=== PATIENT | female | born 1950 | race Caucasian/White ===

== ENCOUNTER → 2016-10-13 | Outpatient (CLI) | payer MEDICARE, MEDICAID ==
[~2016-10-13] MED LIST: LISI5TAB7 PO; SIMV10TA3 PO
[2016-10-13 10:56] LABS: ASPARTATE AMINO TRANSFERASE 16 U/L (15-37); BLOOD UREA NITROGEN 10 mg/dL (7-18)
== END | disposition home or self-care (01) ==
LOC: STAR 10-09 12:23
PROVIDERS: ATTEND Neurological Surgery
DX: Z01.818 Encounter for other preprocedural examination (principal); I10 Essential (primary) hypertension; M47.12 Other spondylosis with myelopathy, cervical region; R79.1 Abnormal coagulation profile
CPT/HCPCS: 36415; 71020; 80053; 81003; 85025; 85610; 85730; 93005

== ENCOUNTER 2016-10-20 05:38 | Inpatient (IN) | payer MEDICARE, MEDICAID ==
[~2016-10-20] VITALS: Ht 167.6 cm; Wt 83.0 kg
[2016-10-20] MEDS ORDERED: LACTATED RINGERS 1,000 ML IV SCH (06:24)
[2016-10-20] MEDS ORDERED: LIDOCAINE 1%, 2ML SQ PRN (06:30)
[2016-10-20] MEDS ORDERED: VANCOMYCIN 1,000 MG ONE (06:54)
[2016-10-20] MEDS ORDERED: BUPIVACAINE/PF-EPI 0.5% 1:200K ONE (06:54)
[2016-10-20] MEDS ORDERED: THROMBIN 5,000 UNIT VIAL TP ONE (06:55)
[2016-10-20] MEDS ORDERED: BACITRACIN 50,000 UNIT ONE (06:55)
[2016-10-20] MEDS ORDERED: FENTANYL PF 250 MCG/5ML ONE (07:22)
[2016-10-20] MEDS ORDERED: KETAMINE 10 MG/ML, 20ML ONE (07:22)
[2016-10-20] MEDS ORDERED: PROPOFOL 10 MG/ML, 20ML ONE (07:35)
[2016-10-20] MEDS ORDERED: DEXAMETHASONE 4 MG/ML, 5ML ONE (07:35)
[2016-10-20] MEDS ORDERED: PROPOFOL 10 MG/ML, 50ML ONE (07:35)
[2016-10-20] MEDS ORDERED: CEFAZOLIN 1,000 MG ONE (07:35)
[2016-10-20] MEDS ORDERED: ROCURONIUM 10 MG/ML ONE (07:35)
[2016-10-20] MEDS ORDERED: SUCCINYLCHOLINE 20 MG/ML, 10ML ONE (07:35)
[2016-10-20] MEDS ORDERED: THROMBIN 20,000 UNIT VIAL TP ONE (08:57)
[2016-10-20] MEDS ORDERED: PROMETHAZINE 25 MG/ML, 1ML IV PRN (09:00)
[2016-10-20] MEDS ORDERED: ONDANSETRON 2MG/ML, 2ML IVPush PRN (09:00)
[2016-10-20] MEDS ORDERED: OXYcodone 5 MG/5 ML ORAL.SOL UDC PO PRN (09:00)
[2016-10-20] MEDS ORDERED: LABETALOL 5MG/ML, 20ML IV PRN ×3 (09:00→15:00)
[2016-10-20] MEDS ORDERED: hydrALAzine 20 MG/ML, 1ML IV PRN (09:00)
[2016-10-20] MEDS ORDERED: HYDROmorphone 1 MG/ML, 1ML IV PRN (09:00)
[2016-10-20] MEDS ORDERED: FENTANYL PF 100 MCG/2ML IV PRN (09:00)
[2016-10-20] MEDS ORDERED: DIAZEPAM 5 MG/ML, 2ML IV PRN (15:00)
[2016-10-20] MEDS ORDERED: DIPHENHYDRAMINE 50 MG/ML, 1ML IVPush PRN (15:00)
[2016-10-20] MEDS ORDERED: PROMETHAZINE 25 MG/ML, 1ML IM PRN (15:00)
[2016-10-20] MEDS ORDERED: morphine SULFATE 10 MG/ML, 1ML IV PRN (15:00)
[2016-10-20] MEDS ORDERED: MORPHINE SULFATE 4 MG/ML, 1ML IV PRN (15:00)
[2016-10-20] MEDS ORDERED: BISACODYL 10 MG SUPP PR PRN (15:00)
[2016-10-20] MEDS ORDERED: MAGNESIUM HYDROXIDE 8%, 30ML UDC PO PRN (15:00)
[2016-10-20] MEDS ORDERED: DIAZEPAM 5 MG TABLET PO PRN (15:00)
[2016-10-20] MEDS ORDERED: DIPHENHYDRAMINE 50 MG CAPSULE PO PRN (15:00)
[2016-10-20] MEDS ORDERED: DIPHENHYDRAMINE 50 MG/ML, 1ML IM PRN (15:00)
[2016-10-20] MEDS ORDERED: METHOCARBAMOL 1,000 MG in DEXTROSE 5% 100 ML IV ONE (15:00)
[2016-10-20] MEDS: NS + 20MEQ KCL 1,000 ML IV SCH (16:27)
[2016-10-20 19:20] VITALS: BP 145/86
[2016-10-20] MEDS: CEFAZOLIN PMX 1GM/50ML 50 ML IVPB SCH (19:43)
[2016-10-20] MEDS: SIMVASTATIN 10 MG TABLET PO SCH (19:43)
[2016-10-20] MEDS: METHOCARBAMOL 750 MG in DEXTROSE 5% 100 ML IV SCH (22:57)
[2016-10-21] VITALS: BP 125/74
[2016-10-21] MEDS: CEFAZOLIN PMX 1GM/50ML 50 ML IVPB SCH (03:16)
[2016-10-21] MEDS: NS + 20MEQ KCL 1,000 ML IV SCH ×3 (03:30→21:23)
[2016-10-21 04:58] LABS: BLOOD UREA NITROGEN 7 mg/dL (7-18)
[2016-10-21 05:12] VITALS: BP 121/71
[2016-10-21] MEDS: METHOCARBAMOL 750 MG in DEXTROSE 5% 100 ML IV SCH ×3 (06:39→23:15)
[2016-10-21 06:53] VITALS: BP 118/68
[2016-10-21] MEDS: LISINOPRIL 5 MG TABLET PO SCH (09:00)
[2016-10-21] MEDS: SENNA/DOCUSATE TABLET PO SCH (09:00)
[2016-10-21] MEDS: HYDROcodone/APAP 5/325 TABLET PO PRN (09:06)
[2016-10-21] MEDS: ONDANSETRON 2MG/ML, 2ML IV PRN ×2 (11:18→20:10)
[2016-10-21 13:55] VITALS: BP 111/62
[2016-10-21 19:32] VITALS: BP 121/70
[2016-10-21] MEDS: SIMVASTATIN 10 MG TABLET PO SCH (20:10)
[2016-10-21] MEDS: OXYcodone/APAP 5/325MG TABLET PO PRN (20:10)
[2016-10-22 03:14] VITALS: BP 115/72
[2016-10-22] MEDS: OXYcodone/APAP 5/325MG TABLET PO PRN ×2 (04:27→09:10)
[2016-10-22] MEDS: METHOCARBAMOL 750 MG in DEXTROSE 5% 100 ML IV SCH ×2 (06:45→15:45)
[2016-10-22 06:51] VITALS: BP 113/74
[2016-10-22] MEDS: LISINOPRIL 5 MG TABLET PO SCH (09:10)
[2016-10-22] MEDS: SENNA/DOCUSATE TABLET PO SCH (09:10)
[2016-10-22 12:44] VITALS: BP 117/75
[2016-10-22] MEDS: HYDROcodone/APAP 5/325 TABLET PO PRN ×2 (13:52→17:58)
[2016-10-22] MEDS ORDERED: HYDR-3138 PO (15:53)
[2016-10-22] MEDS ORDERED: METH750T87 PO (15:55)
[2016-10-22 18:00] VITALS: BP 127/56
[2016-10-22] MEDS ORDERED: METHOCARBAMOL 750 MG TABLET PO SCH (23:00)
== END 2016-10-22 18:20 | disposition home or self-care (01) | DRG 472 ==
LOC: ORIP 05:38 → 4NOR 14:13
PROVIDERS: ADMIT Neurological Surgery; ATTEND Neurological Surgery
PROC: 4A11X4G Monitoring of Peripheral Nervous Electrical Activity, Intraoperative, External Approach (ICD-10-PCS; 2016-10-20)
PROC: 0RG1071 Fusion of Cervical Vertebral Joint with Autologous Tissue Substitute, Posterior Approach, Posterior Column, Open Approach (ICD-10-PCS; principal; 2016-10-20 07:30)
DX: S12.110A Anterior displaced Type II dens fracture, initial encounter for closed fracture (principal); M47.12 Other spondylosis with myelopathy, cervical region; X58.XXXA Exposure to other specified factors, initial encounter; Y93.89 Activity, other specified; Y92.89 Other specified places as the place of occurrence of the external cause; Y99.8 Other external cause status; I10 Essential (primary) hypertension
CPT/HCPCS: 36415; 72040; 72125; 80048; 82040; 85025; 85610; C1713; J0690; J1100; J2270; J2405; J2704; J3010; J3370; J3480; C1762; J0330; J2800; J7120